=== PATIENT | female | born 1980 ===

== ENCOUNTER 2018-10-05 09:11 | Outpatient (CLI) | payer BC ==
--- NOTE | 2018-10-05 10:52 | RAD ---
FOUR VIEWS LUMBAR SPINE INCLUDING FLEXION AND EXTENSION VIEWS: DATE: 10/05/2018. HISTORY: Lumbar spondylolysis, spondylolisthesis. FINDINGS: There are 5 [id number] lumbar-type vertebral bodies. There is a suggestion of bilateral pars de fects at L5 with trace anterolisthesis of L5 on S1. No abnormal translational motion seen between th e flexion and extension views. The vertebral body heights are within normal limits. No fracture is identified. IMPRESSION: Spondylolisthesis lumbosacral junction with trace anterolisthesis of L5 on S1. No abnormal translati onal motion is present. POS: MEAGHAN
== END 2018-10-05 09:12 | disposition home or self-care (01) ==
LOC: RAD 09:11
PROVIDERS: ATTEND Anesthesiology Pain Medicine
DX: M43.06 Spondylolysis, lumbar region (principal); M43.17 Spondylolisthesis, lumbosacral region
CPT/HCPCS: 72120